=== PATIENT | female | born 1955 | race Caucasian/White ===

== ENCOUNTER 2023-02-12 13:25 | Emergency (ER) | payer OTHER ==
[~2023-02-12] VITALS: Ht 157.5 cm; Wt 88.9 kg
[2023-02-12 13:44] VITALS: BP_SYST 118
--- NOTE | 2023-02-12 13:48 | NUR ---
PT BIB DAUGHTER AWAKE AND ALERT AOX4. PT C/O SOB X3 DAYS. PT O2 SAT 96% RA. PT ALSO STATES VERTIGO, DEPRESSION, AND ANXIETY X3 DAYS. PT HAS HX OF HTN, DERESSION, DM2, HLD. PT STATES SHE HAS SX ON L KNEE, AND UTERINE CANCER.
--- NOTE | 2023-02-12 13:51 | NUR ---
MD DR MCGUIRE AT [facility] Addendum: 02/12/23 at [address] ZEPEDA AT [facility]
[2023-02-12 15:32] LABS: BASOPHILS % (AUTO) 0.7 % (0.0-2.0); EOSINOPHILS # (AUTO) 0.1 K/uL (0.0-0.4); EOSINOPHILS % (AUTO) 1.9 % (0.0-4.0); HEMATOCRIT 40.9 % (36-48); HEMOGLOBIN 13.8 g/dL (12.0-16.0); LYMPHOCYTES # (AUTO) 1.9 K/uL (1.0-5.5); LYMPHOCYTES % (AUTO) 32.8 % (20.5-51.5); MEAN CORPUSCULAR HEMOGLOBIN 32 pg (27-31); MEAN CORPUSCULAR HGB CONC 34 % (32-36); MEAN CORPUSCULAR VOLUME 94 fL (79.0-98.0); MONOCYTES # (AUTO) 0.5 K/uL (0.0-1.0); MONOCYTES % (AUTO) 9.5 % (1.7-9.3); NEUTROPHILS # (AUTO) 3.1 K/uL (1.8-7.7); NEUTROPHILS % (AUTO) 55.1 % (40.0-70.0); PLATELET COUNT (AUTO) 240 K/uL (130-430); RED BLOOD CELL COUNT(AUTO) 4.34 MIL/uL (4.2-6.2); RED CELL DISTRIBUTION WIDTH 14.2 % (9.0-15.0); WHITE BLOOD COUNT (AUTO) 5.6 K/uL (4.8-10.8)
[2023-02-12 15:56] LABS: ANION GAP 3 (5-15); CALCIUM 8.7 mg/dL (8.4-11.0); CHLORIDE 101 mmol/L (98-107); CREATININE 0.82 mg/dL (0.55-1.30); GFR AFRICAN AMERICAN 89 mL/min (>90); GLUCOSE 94 mg/dL (70-99); UREA NITROGEN, BLOOD 21 mg/dL (8-21)
[2023-02-12 16:04] LABS: ALANINE AMINOTRANSFERASE 23 U/L (12-78); ASPARTATE AMINOTRANSFERASE 17 U/L (10-37); TOTAL BILIRUBIN 0.5 mg/dL (0.0-1.0)
[2023-02-12 16:05] LABS: ALBUMIN 3.5 g/dL (3.4-4.8)
[2023-02-12] MEDS ORDERED: HYDR-3698 PO (16:30)
[2023-02-12 19:31] VITALS: BP_SYST 118
--- NOTE | 2023-02-12 19:32 | NUR ---
Patient given written and verbal discharge instructions and verbalizes understanding. ER MD ZEPEDA discussed with patient the results and treatment provided. Patient in stable condition. ID arm band removed. IV catheter removed intact and dressing applied, no active bleeding. Patient educated on pain management and to follow up with PMD. Pain Scale 0/10. Opportunity for questions provided and answered. Medication side effect fact sheet provided.
== END 2023-02-12 17:00 | disposition home or self-care (01) ==
LOC: SED 13:25
DX: R06.02 Shortness of breath (principal); F32.A Depression, unspecified; F41.9 Anxiety disorder, unspecified; I10 Essential (primary) hypertension; Z79.899 Other long term (current) drug therapy
CPT/HCPCS: 36415; 71045; 80053; 83690; 83880; 84484; 85025; 93005; 99285